=== PATIENT | male | born 1940 ===

== ENCOUNTER 2018-10-15 09:14 | Outpatient (CLI) | payer OTHER ==
[~2018-10-15] VITALS: Ht 152.4 cm; Wt 68.0 kg
== END 2018-10-15 09:30 | disposition home or self-care (01) ==
LOC: OFIC 805 09:14
DX: H60.8X3 Other otitis externa, bilateral (principal); H61.23 Impacted cerumen, bilateral; H90.3 Sensorineural hearing loss, bilateral